=== PATIENT | male | born 1945 | race African-American/Black ===

== ENCOUNTER 2018-05-13 14:07 | Emergency (ER) | payer BC, MEDICAID, MEDICARE ==
[~2018-05-13] VITALS: Ht 175.3 cm; Wt 63.0 kg
[2018-05-13 18:56] VITALS: BP 132/81
== END 2018-05-13 19:09 | disposition home or self-care (01) ==
LOC: ER 14:07
DX: S60.561A Insect bite (nonvenomous) of right hand, initial encounter (principal); L03.113 Cellulitis of right upper limb; J45.909 Unspecified asthma, uncomplicated; Z88.5 Allergy status to narcotic agent; Z87.828 Personal history of other (healed) physical injury and trauma; Z87.438 Personal history of other diseases of male genital organs; Z87.710 Personal history of (corrected) hypospadias; W57.XXXA Bitten or stung by nonvenomous insect and other nonvenomous arthropods, initial encounter; Y93.89 Activity, other specified; Y92.89 Other specified places as the place of occurrence of the external cause; Y99.8 Other external cause status
CPT/HCPCS: 99283